=== PATIENT | male | born 1955 | race Caucasian/White ===

== ENCOUNTER 2017-08-25 10:47 | Emergency (ER) | payer BC, OTHER ==
[2017-08-25 10:50] VITALS: BMI 35.9
[2017-08-25] MEDS ORDERED: Clindamycin 300 MG in Sodium Chloride 0.9% 50 ML IVPB STA ×2 (11:15→16:17)
[2017-08-25 12:14] LABS: BASO # 0.1 K/uL (0.0-0.2); BASO % 0.6 % (0.0-2.0); EOS % 0.2 % (0.0-4.0); LYMPH # 1.3 K/uL (1.0-4.3); LYMPH % 11.8 % (20.0-40.0); MEAN CORPUSCULAR HEMOGLOBIN 31.9 pg (27.0-31.0); MEAN CORPUSCULAR HGB CONC 35.1 g/dL (33.0-37.0); MEAN PLATELET VOLUME 8.4 fL (7.2-11.7); MONO # 1.2 K/uL (0.0-0.8); MONO % 11.3 % (0.0-10.0); NEUT # 8.3 K/uL (1.8-7.0); NEUT % 76.1 % (50.0-75.0); RBC 4.7 Mil/uL (4.40-5.90); RED CELL DISTRIBUTION WIDTH 14.2 % (11.5-14.5)
[2017-08-25 12:29] LABS: BLOOD UREA NITROGEN 17 mg/dL (9-20); CALCIUM 9.4 mg/dl (8.6-10.4); GFR AFRICAN-AMERICAN > 60; GFR NON-AFRICAN AMERICAN > 60
--- NOTE | 2017-08-25 13:35 | C.PDOC ---
History Of Present Illness Patient is a 62 y/o male, with a Hx of Type II DM, who presents to the ED with a complaint of pain and swelling to the right side of the face for the last two days. Patient reports waking up two days ago with minimal swelling that worsened with time. Patient notes developing right ear pain and right-sided headache. Denies taking any pain meds, seeing PMD or dentist, fever, nausea, chills, vomiting, neck pain, or neck stiffness. Patient has no other physical complaints at this time. Time Seen by Provider: 08/25/17 11:07 Chief Complaint (Nursing): Dental Pain History Per: Patient History/Exam Limitations: no limitations Onset/Duration Of Symptoms: Days (2), Gradual, Worse Since Current Symptoms Are (Timing): Still Present Recent travel outside of the [place]: No Past Medical History Reviewed: Historical Data, Nursing Documentation, Vital Signs Vital Signs: Last Vital Signs Temp 99.8 F H 08/25/17 16:20 Pulse 94 H 08/25/17 16:20 Resp 20 08/25/17 16:20 BP 126/76 08/25/17 16:20 Pulse Ox 95 08/25/17 16:51 - Medical History PMH: Diabetes (type II), HTN, Hypercholesterolemia Surgical History: No Surg Hx Family History: States: No Known Family Hx - Social History Hx Tobacco Use: Yes (light smoker) Hx Alcohol Use: Yes Hx Substance Use: No - Immunization History Hx Tetanus Toxoid Vaccination: No Hx Influenza Vaccination: Yes Hx Pneumococcal Vaccination: No Review Of Systems Constitutional: Negative for: Fever, Chills ENT: Positive for: Ear Pain (right ear), Mouth Pain, Mouth Swelling (right sided ) Gastrointestinal: Negative for: Nausea, Vomiting Musculoskeletal: Negative for: Neck Pain Neurological: Positive for: Headache (right sided) Physical Exam - Physical Exam Appears: Other (awake, alert, conversational) Ear(s): Bilateral: Normal (TMs normal) Oral Mucosa: Moist Tongue: Normal Appearing, No Swelling Gingiva: Abscess (right lower gum, tender and fluctuant), Other (large swelling to outside of right cheek) Throat: Normal, No Erythema, No Exudate Neck: Supple Cardiovascular: Rhythm Regular, No Murmur Respiratory: Normal Breath Sounds, No Rales, No Rhonchi, No Wheezing Gastrointestinal/Abdominal: Soft, No Tenderness Neurological/Psych: Oriented x3 ED Course And Treatment - Laboratory Results Result Diagrams: 08/25/17 12:05 08/25/17 12:05 O2 Sat by Pulse Oximetry: 95 Medical Decision Making Medical Decision Making: Maxillofacial CT ordered. IV fluids administered. Positive dental abscess. Spoke with Dr. Kelly, recommend transfer to [facility] for dental services. Spoke with Oral surgery fellow, no need to transfer, recommend continue abx and d/c to follow up with dental tomorrow. Area cleaned, small needle aspiration reveals pus. Disposition Counseled Patient/Family Regarding: Studies Performed, Diagnosis, Need For Followup - Disposition Disposition: HOME/ ROUTINE Disposition Time: 17:11 Condition: STABLE Additional Instructions: Siga con ortiz dentista don. Prescriptions: Clindamycin [Cleocin] 300 mg PO TID #30 cap Instructions: Tooth Abscess (DC) Forms: [facility] (Slovenian), General Discharge Instructions - POA Present On Arrival: None - Clinical Impression Clinical Impression: Dental abscess - Scribe Statement The provider has reviewed the documentation as recorded by the Scribe Dyana Vargas All medical record entries made by the Scribe were at my direction and personally dictated by me. I have reviewed the chart and agree that the record accurately reflects my personal performance of the history, physical exam, medical decision making, and the department course for this patient. I have also personally directed, reviewed, and agree with the discharge instructions and disposition.
[2017-08-25] MEDS ORDERED: Iodixanol 320 MG/ML 100 ML BOTTLE IV ONE (13:50)
[2017-08-25 16:22] VITALS: RESP 20
[2017-08-25 17:59] VITALS: BP 155/87; PULSE 97; TEMP 99.9; O2SAT 98
--- NOTE | 2017-08-26 10:30 | CT ---
PROCEDURE: CT scan maxillofacial skeleton dated 08/25/2017 HISTORY: Possible dental abscess COMPARISON: No prior TECHNIQUE: Contiguous helical/transaxial CT images of the maxillofacial bones were obtained following administration of IV contrast. Coronal and sagittal reformats were generated. Intravenous contrast Dose: 100 cc Visipaque 320 Radiation dose: Total exam DLP = 787.64 mGy-cm. This CT exam was performed using one or more of the following dose reduction techniques: Automated exposure control, adjustment of the mA and/or kV according to patient size, and/or use of iterative reconstruction technique. . FINDINGS: Significant right-sided facial soft tissue swelling of which extends from the mid premaxillary region inferiorly over maxilla and mandible with infiltration of the subcutaneous tissues consistent with a cellulitis. There appears to be a small linear abscess adjacent to the buccal surface of the mandible which measures approximately 3 cm x 0.4 cm. These findings are likely related to poor dentition with multiple carious teeth and radicular cystic changes surrounding many of the roots of the mandibular and maxillary teeth. Dental consultation recommended. There are multiple bilateral cervical lymph nodes with the right-sided submandibular lymph node measuring nearly 12.7 mm and another located adjacent to the posterior superior margin of the right parotid gland or measures approximately 12.4 mm. . Eighty right-sided jugulodigastric lymph node measures approximately 12 mm and left-sided jugulodigastric lymph node measures approximately 9.8 mm. . Visualized paranasal sinuses are well-developed. No fluid levels seen to suggest acute sinusitis. Minor mucosal thickening left maxillary antrum and within a few ethmoid air cells extending superiorly into the inferior margin of the frontal sinus. Within the intracranial compartment. Vascular calcifications are present. There is mild periventricular white matter ischemic changes and mild generalized volume loss. IMPRESSION: Right-sided facial soft tissue swelling -cellulitis extending from the mid to inferior premaxillary region inferiorly overlying the right mandibular body and symphysis region. . Poor dentition with dental caries radicular cyst formation involving multiple maxillary and mandibular teeth. . There is a small elliptical shaped presumed abscess adjacent to the buccal surface of the anterior aspect right maxilla.
== END 2017-08-25 17:58 | disposition home or self-care (01) ==
LOC: C.ER 10:47
DX: K04.7 Periapical abscess without sinus (principal); E11.9 Type 2 diabetes mellitus without complications; E78.00 Pure hypercholesterolemia, unspecified; I10 Essential (primary) hypertension; F17.210 Nicotine dependence, cigarettes, uncomplicated
CPT/HCPCS: 70488; 80048; 85025; 96365; 96366; 99283; Q9967